=== PATIENT | male | born 1935 | race African-American/Black ===

== ENCOUNTER 2020-08-18 22:00 | Emergency (ER) | payer MEDICARE, OTHER ==
[~2020-08-18] VITALS: Ht 185.4 cm; Wt 100.0 kg
[~2020-08-18 22:00] MED LIST: NAPR250T4 PO
[2020-08-18 22:57] VITALS: BP 135/80
== END 2020-08-19 00:10 | disposition left against medical advice (07) ==
LOC: EDUNIT# 22:00 → EMS 22:00
DX: M25.579 Pain in unspecified ankle and joints of unspecified foot (principal); Z53.21 Procedure and treatment not carried out due to patient leaving prior to being seen by health care provider